=== PATIENT | male | born 1955 | race Caucasian/White ===

== ENCOUNTER 2016-12-15 11:14 | Day surgery (SDC) | payer BC ==
[2016-12-12 09:11] VITALS: BMI 32.3
[~2016-12-15 11:14] MED LIST: LACTATED RINGERS 1,000 ML IV SCH
[2016-12-15 11:54] VITALS: TEMP 98.1
[2016-12-15] MEDS ORDERED: LIDOCAINE 1% 20 ML VIAL (10MG/ML) FOR IV START INTRADERMA ONE (12:01)
[2016-12-15] MEDS ORDERED: PROPOFOL 10 MG/ML 20 ML VIAL IV ONE (12:34)
--- NOTE | 2016-12-15 13:13 | P.PCN ---
Date of Procedure: 12/15/16 Preoperative Diagnosis: Postoperative Diagnosis: Procedure(s) Performed: Procedure: Esophagogastroduodenoscopy with esophageal dilation and esophageal biopsy. Preoperative diagnosis: Dysphagia and history of esophageal stricture. Postoperative diagnosis: 1. Esophageal stricture dilated up to 15 mm using the Microvasive [id number]-[id number] balloon dilator. 2. Small hiatal hernia. Preparation and sedation: Was provided by anesthesia. Brief clinical history: The patient is a 61-year-old male who has had issues with solid food dysphagia including episodes of obstructive dysphagia over the last few years. Two different times he had to go to the hospital for endoscopic intervention. I performed an upper endoscopy and obtained biopsies around 2 years ago and at that time he was dilated up to 13.5 mm. The biopsies showed 80 eosinophils per high power field. The patient has noted recurrence of his symptoms already last 2 months with episodes of curling more frequently. He was thus referred for upper endoscopy and possible dilation. Procedure: With the patient on his left lateral decubitus position and after informed consent and adequate sedation, I passed the Olympus-GIF 160 video upper endoscope through the cricopharyngeus down the esophagus. GE junction was around 40-41 cm from the incisors and there was a benign-appearing stricture at that level that did not allow the advancement of the endoscope. There was another short benign stricture in the more proximal aspect of the esophagus around 25-26 cm from the incisors that I rule out the advancement of the endoscope. At this point, I proceeded to dilate the stricture before I was able to pass the endoscope into the stomach. I used the Microvasive through-the -scope balloon dilator size 12-15 mm and I centered it at the level of the stricture inflated it and a stepwise fashion up to 15 mm. After that I was able to pass the endoscope through a hiatal hernia to the rest of the stomach which was insufflated with air and inspected in detail including the retroflex view in the cardia. Finally the endoscope was passed through the pylorus into the duodenum. No obvious abnormalities were seen in the stomach. Pyloric channel, duodenal bulb, post bulbar area and descending duodenum appeared within normal limits. There was some corrugations noted in the esophagus but no obvious ulcers or erosions. I did obtain biopsies from the esophagus at the conclusion of the exam. Disposition: The patient tolerated the procedure well. Plan: The patient was reassured. Will keep on clear liquid diet today. He will follow up with you as planned. Further dilation can be planned based on his course. I will discuss with him options of treatment for eosinophilic esophagitis based on his course. I will keep you updated on his progress. Implants: Indications for Procedure: Operative Findings: Description of Procedure:
[2016-12-15 13:28] VITALS: BP 121/81; PULSE 75; RESP 18
== END 2016-12-15 14:00 | disposition home or self-care (01) ==
LOC: ORWHC2ENDO 11:14
DX: K22.2 Esophageal obstruction (principal); K20.0 Eosinophilic esophagitis; K44.9 Diaphragmatic hernia without obstruction or gangrene; Z88.0 Allergy status to penicillin; Z88.2 Allergy status to sulfonamides; I10 Essential (primary) hypertension; Z79.82 Long term (current) use of aspirin; Z79.899 Other long term (current) drug therapy
CPT/HCPCS: 88305; 43239; 43249; J2704

== ENCOUNTER 2020-03-19 06:02 | Day surgery (SDC) | payer BC ==
[2020-03-16 09:12] VITALS: BMI 32.1
[~2020-03-19 06:02] MED LIST changes: +ACETAMINOPHEN TAB 500 MG TAB PO PRN; +DEXAMETHASONE SOD PHOSPHATE 4 MG/ML 1 ML VIAL IV ONE; +HEPARIN SODIUM,PORCINE 5,000 UNIT/ML 1 ML VIAL SQ PRN; +LIDOCAINE 1% (10MG/ML) FOR IV START INTRADERMA PRN; +ONDANSETRON 4 MG/2 ML VIAL IVP ONE; +SCOPOLAMINE 1.5MG/72HR PATCH TRANSDERM ONE
[2020-03-19 06:49] VITALS: RESP 16
[2020-03-19 07:11] LABS: Basophils # (A) 0.1 k/uL (0-0.2); Basophils % (A) 1 %; Eosinophils # (A) 0.5 k/uL (0-0.7); Eosinophils % (A) 6 %; HCT 47.2 % (39.0-53.0); HGB 16.3 gm/dL (13.0-17.5); Lymphocytes # (A) 1.2 k/uL (1.0-4.8); Lymphocytes % (A) 14 %; MCH 29.8 pg (25.0-35.0); MCHC 34.6 g/dL (31.0-37.0); Mean Platelet Volume 6.6; Monocytes # (A) 0.4 k/uL (0-1.0); Monocytes % (A) 4 %; Neutrophils # (A) 6.1 k/uL (1.3-7.7); Neutrophils % (A) 72 %; Platelet Count 295 k/uL (150-450); RBC 5.48 m/uL (4.30-5.90); WBC 8.6 k/uL (3.8-10.6)
[2020-03-19 07:24] LABS: Calcium 9.5 mg/dL (8.4-10.2); Potassium 3.4 mmol/L (3.5-5.1)
[2020-03-19] MEDS ORDERED: BUPIVACAINE (PF) 0.25% 30 ML VIAL SQ ONE ×3 (07:42→08:07)
[2020-03-19] MEDS ORDERED: ROCURONIUM 10 MG/ML (10 ML VIAL) IV ONE (07:49)
[2020-03-19] MEDS ORDERED: SUCCINYLCHOLINE CHLORIDE 100 MG/5 ML SYR IV ONE (07:49)
[2020-03-19] MEDS ORDERED: GLYCOPYRROLATE 0.2 MG/ML 2 ML VIAL ONE (07:49)
[2020-03-19] MEDS ORDERED: LIDOCAINE 1% INJ 10MG/ML (20 ML MDV) ONE (07:49)
[2020-03-19] MEDS ORDERED: MIDAZOLAM 2 MG/2 ML VIAL ONE (07:49)
[2020-03-19] MEDS ORDERED: fentaNYL (PF) 50 MCG/ML 2 ML AMP ONE (07:49)
[2020-03-19] MEDS ORDERED: PROPOFOL 10 MG/ML 20 ML VIAL IV ONE (07:49)
[2020-03-19] MEDS ORDERED: NEOSTIGMINE 1 MG/ML 10 ML VIAL ONE (07:49)
--- NOTE | 2020-03-19 07:52 | P.HPADDEND ---
H&P Addendum H&P Addendum Date: 03/19/20 Only change to the recently dictated history and physical was that the patient presents today with a rash that began 2 days ago. He says he had something similar to this earlier this year and was treated with steroids orally and was told that it was likely related to contact dermatitis after working outside. The rashes involving his legs and lower torso. Arms and back upper abdomen and chest are spared. Rashes nonraised small reddish spots measuring 2-6 mm in size. Today CBC completely normal. Has had some vague nausea recently. Otherwise asymptomatic. No recent upper respiratory symptoms. Patient would like to proceed with surgery since he has made a lot of plans and changes to his schedule to accommodate this procedure. Also discussed that the patient has already had some risk of cold exposure just by coming into the hospital and being in preop with his IV in place. I told the patient I would be agreeable to proceed with surgery if he can get in to see his primary care physician in the next 24-48 hours to discuss further. Etiology most likely viral however other abnormalities including vasculitis may need to be evaluated. Slight increased risk of bleeding with the procedure reviewed. He is agreeable to proceed. Again the patient's hernia is ventral and present midway between the umbilicus and xiphoid. Patient also has a diastases recti as well as a probable small umbilical hernia in addition to his known inguinal hernias. Patient is agreeable to proceeding only with repair of the ventral hernia at this time which is the only area that is symptomatic to him presently. We'll proceed.
[2020-03-19 09:02] VITALS: TEMP 97.4
--- NOTE | 2020-03-19 09:05 | P.OP ---
Date of Procedure: 03/19/20 Procedure(s) Performed: PREOPERATIVE DIAGNOSIS: Incarcerated ventral hernia POSTOPERATIVE DIAGNOSIS: Same PROCEDURE: Incarcerated the ventral hernia repair with mesh SURGEON: Kane EBL: Minimal ANESTHESIA: Gen. COMPLICATIONS: None OPERATIVE PROCEDURE: Patient placed on the operating table in the supine posi tion. Abdomen was prepped and draped in usual sterile fashion. A vertical incision was then made superior to the umbilicus by approximately 8 cm. Dissection through the subcutaneous tissues took place using electrocautery. The patient's defect was singular. This measured 2-2.5 cm in diameter. The hernia contents were reduced back into the preperitoneal space. The preperitoneal space was then dissected using blunt dissection and electrocautery. The 6.4 cm ventral ex mesh was placed in the preperitoneal space and sutured to the fascia using trans-fascial 0 Ethibond sutures. Following that the fascia was reapproximated horizontally using interrupted 0 Ethibond mattress sutures. The folding edge was also sutured down using 0 Ethibond sutures. The subcutaneous tissues were closed using 2-0 and 3-0 Vicryl sutures. The skin was closed using a running 4-0 Monocryl suture. Skin glue and sterile dressings were applied. DISPOSITION: Stable to recovery room
[2020-03-19] MEDS: HYDROmorphone 0.5 MG/0.5 ML SYRINGE IVP PRN ×4 (09:25→09:50)
[2020-03-19] MEDS ORDERED: KETOROLAC 15 MG/ML 1 ML VIAL IVP ONE (09:28)
[2020-03-19] MEDS ORDERED: LACTATED RINGERS 1,000 ML IV ONE (09:30)
[2020-03-19 11:19] VITALS: BP 130/80; PULSE 100
[2020-03-19] MEDS ORDERED: IBUPROFEN 600 MG TAB PO SCH (12:00)
[2020-03-19] MEDS ORDERED: ACETAMINOPHEN TAB 325 MG TAB PO SCH (12:00)
== END 2020-03-19 11:55 | disposition home or self-care (01) ==
LOC: OR 06:02
PROVIDERS: ATTEND Surgery
DX: K43.6 Other and unspecified ventral hernia with obstruction, without gangrene (principal); I10 Essential (primary) hypertension; K21.9 Gastro-esophageal reflux disease without esophagitis; E78.5 Hyperlipidemia, unspecified; M19.90 Unspecified osteoarthritis, unspecified site; Z79.52 Long term (current) use of systemic steroids; Z79.899 Other long term (current) drug therapy; Z88.0 Allergy status to penicillin; Z88.2 Allergy status to sulfonamides
CPT/HCPCS: 80048; 85025; 49561; 49568; C1781; J2250; J1644; J1100; J2710; J0690; J2405; J2001; J3010; J1885; J0330; J2704; J1170

== ENCOUNTER → 2020-03-22 | Outpatient (CLI) | payer BC ==
[2020-03-22 08:27] LABS: Basophils # (A) 0.1 k/uL (0-0.2); Basophils % (A) 1 %; Eosinophils # (A) 0.8 k/uL (0-0.7); Eosinophils % (A) 9 %; HCT 47.7 % (39.0-53.0); HGB 15.8 gm/dL (13.0-17.5); Lymphocytes # (A) 1.5 k/uL (1.0-4.8); Lymphocytes % (A) 19 %; MCH 29.3 pg (25.0-35.0); MCHC 33.2 g/dL (31.0-37.0); MCV 88.3 fL (80.0-100.0); Mean Platelet Volume 6.6; Monocytes # (A) 0.4 k/uL (0-1.0); Monocytes % (A) 5 %; Neutrophils # (A) 5.2 k/uL (1.3-7.7); Neutrophils % (A) 63 %; Platelet Count 368 k/uL (150-450); RDW 13.2 % (11.5-15.5); WBC 8.3 k/uL (3.8-10.6)
[2020-03-22 08:38] LABS: Amorphous Sediment,Urine Few /hpf; Appearance,Urine Cloudy (Clear); Bilirubin,Urine Negative (Negative); Blood,Urine Negative (Negative); Color,Urine Yellow; Glucose,Urine (UA) Negative (Negative); Hyaline Casts,Urine 4 /lpf (0-2); Ketones,Urine Negative (Negative); Leukocyte Esterase,Urine Negative (Negative); Mucus,Urine Occasional /hpf; Nitrite,Urine Negative (Negative); PH, Urine 7.5 (5.0-8.0); Protein,Urine 1+ (Negative); RBC,Urine 2 /hpf (0-5); Specific Gravity,Urine 1.014 (1.001-1.035); Squamous Epithelial Cell,Urine <1 /hpf (0-4); Urobilinogen,Urine <2.0 mg/dL (<2.0); WBC,Urine 3 /hpf (0-5)
[2020-03-22 10:56] LABS: Creatinine,Urine Random 199.8 mg/dL; Protein/Creatinine Ratio,Urine 0.17
[2020-03-22 11:22] LABS: Erythrocyte Sedimentation Rate 36 mm/hr (0-15)
[2020-03-22 11:47] LABS: African American GFR (CKD) 67.3 (60.0-200.0); Albumin 4.4 g/dL (3.80-4.90); Albumin/Globulin Ratio 1.83 (1.60-3.17); Anion Gap 7.9 mmol/L (4.00-12.00); BUN/Creat Ratio 11.54 Ratio (12.00-20.00); Calcium 9.5 mg/dL (8.7-10.3); Carbon Dioxide 35.1 mmol/L (21.6-31.8); Chol/HDL Ratio 5.37; Globulin 2.4 g/dL (1.6-3.3); LDL Cholesterol,Calculated 130.2 mg/dL (0.0-131.0); Magnesium 2.6 mg/dL (1.5-2.4); Non-African American GFR(CKD) 58.1 (60.0-200.0); Potassium 3.8 mmol/L (3.5-5.5); Total Bilirubin 0.7 mg/dL (0.3-1.2); Total Protein 6.8 g/dL (6.2-8.2); VLDL Calculation 35.8 mg/dL (5.00-40.00)
[2020-03-22 11:52] LABS: T4, Free (Free Thyroxine) 1.4 ng/dL (0.80-1.80)
[2020-03-22 16:12] LABS: Cyclic Citrull Pep IgG Unit 1.2 U/mL; Cyclic Citrullinated Pep IgG NEGATIVE (NEGATIVE)
[2020-03-23 14:22] LABS: C-ANCA <1:20 Titer (<1:20)
== END | disposition home or self-care (01) ==
LOC: LABWHC1 07:07
PROVIDERS: ATTEND Internal Medicine
DX: R97.20 Elevated prostate specific antigen [PSA] (principal); I10 Essential (primary) hypertension; M31.0 Hypersensitivity angiitis; Q61.2 Polycystic kidney, adult type; E78.2 Mixed hyperlipidemia
CPT/HCPCS: 36415; 80053; 80061; 81001; 82570; 82595; 83735; 83970; 84100; 84153; 84156; 84439; 84443; 85025; 85652; 86038; 86200; 86255; 86431

== ENCOUNTER → 2020-04-16 | Outpatient (CLI) | payer BC ==
[2020-04-17 09:41] LABS: Free Kappa Lt Chain Qnt, Serum 2.73 mg/dL (0.33-1.94); Immunoglobulin M 60.7 mg/dL (40.0-280.0)
== END | disposition home or self-care (01) ==
LOC: LABWHC1 10:22
PROVIDERS: ATTEND Internal Medicine
DX: M31.0 Hypersensitivity angiitis (principal)
CPT/HCPCS: 36415; 82784; 82785; 83883; 86060; 86160; 86162

== ENCOUNTER 2023-07-21 06:58 | Day surgery (SDC) | payer BC, MEDICARE ==
[2023-07-16 16:22] VITALS: BMI 33.0
[~2023-07-21 06:58] MED LIST changes: -ACETAMINOPHEN TAB 500 MG TAB PO PRN; -DEXAMETHASONE SOD PHOSPHATE 4 MG/ML 1 ML VIAL IV ONE; -HEPARIN SODIUM,PORCINE 5,000 UNIT/ML 1 ML VIAL SQ PRN; -LACTATED RINGERS 1,000 ML IV SCH; -ONDANSETRON 4 MG/2 ML VIAL IVP ONE; -SCOPOLAMINE 1.5MG/72HR PATCH TRANSDERM ONE
[2023-07-21] MEDS: LACTATED RINGERS 1,000 ML IV SCH (07:15)
[2023-07-21 07:59] VITALS: RESP 16; TEMP 97.5
[2023-07-21] MEDS ORDERED: LIDOCAINE 1% INJ 10MG/ML (20 ML MDV) ONE (08:20)
[2023-07-21] MEDS ORDERED: PROPOFOL 10 MG/ML 20 ML VIAL IV ONE (08:20)
--- NOTE | 2023-07-21 09:13 | P.GSHP ---
History of Present Illness H&P Date: 07/21/23 Chief Complaint: Dysphagia, screening, history of polyps 67-year-old male here today for upper and lower endoscopy. Patient with intermittent dysphagia for the last 10 years. Symptoms lately have not been too bad. He does take Tums periodically. Does not take any prescription antiacids. Last colonoscopy 7 to 10 years ago. Had polyps then. No family history of colon cancer. Past Medical History Past Medical History: Hyperlipidemia, Hypertension, Renal Disease Additional Past Medical History / Comment(s): "mild" polycystic kidney disease- no current problems History of Any Multi-Drug Resistant Organisms: None Reported Past Surgical History: Hernia Repair, Tonsillectomy Additional Past Surgical History / Comment(s): COLONOSCOPY, EGD with dilation x 2 Past Anesthesia/Blood Transfusion Reactions: No Reported Reaction Past Psychological History: No Psychological Hx Reported Smoking Status: Former smoker Past Alcohol Use History: None Reported Additional Past Alcohol Use History / Comment(s): quit smoking 35 yrs ago, smoked for a couple yrs Past Drug Use History: None Reported - Past Family History Mother Family Medical History: No Reported History Medications and Allergies Home Medications Medication Instructions Recorded Confirmed Type Multivitamin [Men's Multi-Vitamin] 1 each PO DAILY 09/16/13 07/21/23 History Aspirin [Adult Low Dose Aspirin EC] 81 mg PO DAILY 03/16/20 07/21/23 History amLODIPine [Norvasc] 10 mg PO DAILY 03/16/20 07/21/23 History Chlorthalidone 25 mg PO HS 07/16/23 07/21/23 History Losartan Potassium 100 mg PO DAILY 07/16/23 07/21/23 History Metoprolol Succinate (ER) [Toprol 50 mg PO HS 07/16/23 07/21/23 History Xl] Rosuvastatin [Crestor] 20 mg PO DAILY 07/16/23 07/21/23 History Allergies Allergy/AdvReac Type Severity Reaction Status Date / Time Penicillins Allergy Unknown Verified 07/21/23 07:23 Childhood Sulfa (Sulfonamide Allergy Unknown Verified 07/21/23 07:23 Antibiotics) Childhood Surgical - Exam Vital Signs Temp Pulse Resp BP Pulse Ox 97.5 F L 70 16 154/83 94 L 07/21/23 07:24 07/21/23 07:24 07/21/23 07:24 07/21/23 07:24 07/21/23 07:24 Physical exam: General: Well-developed, well-nourished HEENT: Normocephalic, sclerae nonicteric Abdomen: Nontender, nondistended Extremities: No edema Neuro: Alert and oriented Assessment and Plan (1) Colon cancer screening Narrative/Plan: Will proceed with upper endoscopy and colonoscopy at this time Current Visit: Yes Status: Acute Code(s): Z12.11 - ENCOUNTER FOR SCREENING FOR MALIGNANT NEOPLASM OF COLON SNOMED Code(s): 280042686
--- NOTE | 2023-07-21 09:15 | P.PCN ---
Date of Procedure: 07/21/23 Procedure(s) Performed: PREOPERATIVE DIAGNOSIS: Dysphagia, screening, history of polyps POSTOPERATIVE DIAGNOSIS: Gastritis, hiatal hernia, distal esophageal stricture, diverticulosis, descending colon polyp PROCEDURE: 1. EGD with biopsy and dilation 2. Colonoscopy with snare polypectomy ANESTHESIA: [facility] [place] SURGEON: Darren Middleton M.D. SPECIMENS: Antrum, polyp ENDOSCOPIC PROCEDURE: The patient was on the endoscopy table in the left decubitus position. The Olympus gastroscope was inserted into the oropharynx and passed under direct visualization to the region of the third portion of the duodenum. From that point the scope was slowly withdrawn inspecting all surfaces carefully. There were no neoplastic inflammatory or polypoid lesions throughout the duodenum. The pylorus was widely patent. The stomach was carefully inspected. There was mild gastritis present. A biopsy of the antrum took place to rule out H. pylori. Retroflexion revealed a small to medium size hiatal hernia. The GE junction was present 2 cm above the diaphragmatic hiatus. At the GE junction there was a stricture present. This was approximately 10 mm in diameter. There was no inflammatory changes there. No ulcerations or neoplastic changes. Dilation took place sequentially from 12-13 0.5 to 15 mm. Pressure was held for 1 minute at each level. Minimal bleeding was seen. No significant mucosal tearing was noted. The remainder the esophagus appeared normal. The patient was kept on the endoscopy table in the left decubitus position. The Olympus colonoscope was inserted into the anus and passed under direct visualization to the base of the cecum. The appendiceal orifice was visualized. From that point the scope was slowly withdrawn inspecting all surfaces carefully. There were no neoplastic inflammatory or polypoid lesions throughout the cecum, ascending, and transverse colon. The descending colon a small polyp was seen and removed using the snare with cautery technique. The remainder of the descending sigmoid and rectum was normal. The patient had mild left-sided diverticulosis. The patient's prep was slightly suboptimal. Digital rectal examination was normal. The patient was taken to the recovery room in stable condition per anesthesia guidelines. RECOMMENDATIONS: Await biopsy results. Begin daily antiacid therapy. Plan repeat upper and lower endoscopy 5 years.
[2023-07-21 09:27] VITALS: BP 132/74; PULSE 64
== END 2023-07-21 09:32 | disposition home or self-care (01) ==
LOC: ORWHC2ENDO 06:58
PROVIDERS: ATTEND Surgery
DX: Z12.11 Encounter for screening for malignant neoplasm of colon (principal); D12.4 Benign neoplasm of descending colon; K29.50 Unspecified chronic gastritis without bleeding; K44.9 Diaphragmatic hernia without obstruction or gangrene; K22.2 Esophageal obstruction; K57.30 Diverticulosis of large intestine without perforation or abscess without bleeding; I10 Essential (primary) hypertension; E78.5 Hyperlipidemia, unspecified; Q61.3 Polycystic kidney, unspecified; Z87.891 Personal history of nicotine dependence; Z88.0 Allergy status to penicillin; Z88.2 Allergy status to sulfonamides; Z79.82 Long term (current) use of aspirin; Z79.899 Other long term (current) drug therapy
CPT/HCPCS: 88305; 45385; 43239; 43249; J2001; J2704; C1726

== ENCOUNTER → 2024-09-09 | Outpatient (CLI) | payer MEDICARE ==
--- NOTE | 2024-09-09 08:25 | US ---
EXAMINATION TYPE: US carotid duplex BILAT DATE OF EXAM: 09/09/2024 COMPARISON: NONE CLINICAL INDICATION: Male, 69 years old with history of I65.23 STENOSIS OF BILATERAL CAROTID ARTERIES ; Hx Social smoker and HTN, Pre diabetic. Patient denies any other signs, symptoms, or relevant histo ry Additional History: .... TECHNIQUE: Grayscale, color Doppler and spectral Doppler evaluation of the bilateral carotid systems and vertebral arteries. Indirect Doppler criteria was utilized. FINDINGS: EXAM MEASUREMENTS: RIGHT: Peak Systolic Velocity (PSV) cm/sec ----- Right CCA: 86 ----- Right ICA: 60 ----- Right ECA: 87 ICA/CCA ratio: 0.7 RIGHT: End Diastole cm/sec ----- Right CCA: 20 ----- Right ICA: 27 ----- Right ECA: 14 LEFT: Peak Systolic Velocity (PSV) cm/sec ----- Left CCA: 66 ----- Left ICA: 44 ----- Left ECA: 65 ICA/CCA ratio: 0.7 LEFT: End Diastole cm/sec ----- Left CCA: 17 ----- Left ICA: 22 ----- Left ECA: 14 VERTEBRALS (direction of flow): Right Vertebral: Antegrade Left Vertebral: Antegrade Rhythm: Arrhythmia; IMG 40 NUCLEAR TECHNICIAN NOTES: No intimal thickening, plaque, or elevated velocities seen. Color Doppler imaging shows patency with blood flow throughout the carotid artery. Spectral waveforms are within normal limits. IMPRESSION: 1. Atheromatous plaquing without significant flow-limiting stenosis. Criteria for Assigning % of Stenosis / Diameter reduction (Estimation based on the indirect measurements of the internal carotid artery velocities (ICA PSV). 1. Normal (no stenosis)=ICA PSV < 180 cm/s: ratio < 2.0: ICA EDV<40 cm/s. 2. Less than 50% stenosis=ICA PSV < 180 cm/s: ratio < 2.0: ICA EDV<40 cm/s. 3. 50 to 69% stenosis=ICA PSV of 180 to 230 cm/s: ration 2.0 ? 4.0: ICA EDV 40-100 cm/s. PSV 125-180 cm/sec and ICA/CCA PSV Ratio ? 2.0 is also consistent with 50-69% stenosis 4. Greater than 70% stenosis to near occlusion= ICA PSV > 230 cm/s: ratio > 4.0: ICA EDV > 100 cm/s. 5. Near occlusion= ICA PSV velocities may be low or undetectable: variable ratio and ICA EDV. 6. Total occlusion=unable to detect flow. [facility], , 09/09/2024 8:23 AM
== END | disposition home or self-care (01) ==
LOC: RADUSWWP 07:16
PROVIDERS: ATTEND Internal Medicine
DX: I65.23 Occlusion and stenosis of bilateral carotid arteries (principal); I10 Essential (primary) hypertension; R73.03 Prediabetes; Z87.891 Personal history of nicotine dependence
CPT/HCPCS: 93880

== ENCOUNTER → 2024-09-09 | Outpatient (CLI) | payer MEDICARE ==
--- NOTE | 2024-09-09 09:25 | CA ---
Transthoracic Echo Report Name: Antonino Bradford Age: 69 Gender: M : 1955 Exam Date: 09/09/2024 07:55 Exam Location: [facility] Ht (in): 70 Wt (lb): 235 Ordering Physician: Eric Ash MD Attending/Referring Phys: Configuration Release Manager Bel Medeiros RDCS Procedure CPT: Indications: I25.10 CORONARY ARTERY DISEASE Cardiac Hx: Technical Quality: Good Contrast 1: Total Dose (mL): Contrast 2: Total Dose (mL): MEASUREMENTS (Male / Female) Normal Values 2D ECHO LV Diastolic Diameter PLAX 5.0 cm 4.2 - 5.9 / 3.9 - 5.3 cm LV Systolic Diameter PLAX 3.1 cm IVS Diastolic Thickness 1.2 cm 0.6 - 1.0 / 0.6 - 0.9 cm LVPW Diastolic Thickness 0.9 cm 0.6 - 1.0 / 0.6 - 0.9 cm LV Relative Wall Thickness 0.4 LVOT Diameter 2.2 cm LV Diastolic Volume MOD BP 137.1 cm??? 67 - 155 / 56 - 104 cm??? LV Systolic Volume MOD BP 43.8 cm??? 22 - 58 / 19 - 49 cm??? LV Ejection Fraction MOD BP 68.0 % >= 55 % LV Cardiac Index MOD BP 2562.7 cm???/min???m??? LV Diastolic Volume MOD 4C 137.2 cm??? LV Systolic Volume MOD 4C 44.3 cm??? LV Ejection Fraction MOD 4C 67.7 % LV Cardiac Index MOD 4C 2549.8 cm???/min???m??? LV Diastolic Length 4C 8.4 cm LV Systolic Length 4C 7.1 cm LV Diastolic Volume MOD 2C 127.3 cm??? LV Systolic Volume MOD 2C 41.2 cm??? LV Ejection Fraction MOD 2C 67.7 % LV Cardiac Index MOD 2C 2366.4 cm???/min???m??? LV Diastolic Length 2C 9.1 cm LV Systolic Length 2C 7.5 cm LA Volume 48.8 cm??? 18 - 58 / 22 - 52 cm??? LA Volume Index 20.9 cm???/m??? 16 - 28 cm???/m??? Ascending Aorta Diameter 3.9 cm DOPPLER AV Peak Velocity 120.5 cm/s AV Peak Gradient 5.8 mmHg AV Mean Velocity 79.2 cm/s AV Mean Gradient 2.8 mmHg AV Velocity Time Integral 21.4 cm LVOT Peak Velocity 104.2 cm/s LVOT Peak Gradient 4.3 mmHg LVOT Velocity Time Integral 22.4 cm LVOT Stroke Volume 86.4 cm??? LVOT Stroke Volume Index 38.6 ml/m??? LVOT Cardiac Index 2372.2 cm???/min???m??? AV Area Cont Eq vti 4.0 cm??? AV Area Cont Eq pk 3.3 cm??? MV Area PHT 2.5 cm??? Mitral E Point Velocity 61.2 cm/s Mitral A Point Velocity 80.3 cm/s Mitral E to A Ratio 0.8 MV Deceleration Time 301.5 ms TR Peak Velocity 226.3 cm/s TR Peak Gradient 20.5 mmHg Right Atrial Pressure 5.0 mmHg Pulmonary Artery Systolic Pressu 25.5 mmHg Right Ventricular Systolic Press 25.5 mmHg PV Peak Velocity 109.4 cm/s PV Peak Gradient 4.8 mmHg FINDINGS Left Ventricle Left ventricular ejection fraction is estimated at 55-60%. Mildly increased septal wall thickness. Normal left ventricular systolic function with no obvious regional wall motion abnormalities. Right Ventricle Normal right ventricular size and function. Right ventricular systolic pressure within normal limits. Right Atrium Normal right atrial size. Left Atrium Normal left atrial size. Mitral Valve Structurally normal mitral valve. No mitral stenosis. Trace mitral regurgitation. Aortic Valve Trileaflet aortic valve. No aortic stenosis. No aortic regurgitation. Tricuspid Valve Structurally normal tricuspid valve. No tricuspid stenosis. Trace to mild tricuspid regurgitation. Pulmonic Valve Structurally normal pulmonic valve. No pulmonic stenosis. Mild pulmonic regurgitation. Pericardium No pericardial effusion. No pleural effusion. Aorta Normal size aortic root and proximal ascending aorta. Mildly dilated aortic annulus. CONCLUSIONS LVEF 55% No obvious regional wall motion abnormality Mildly increased septal wall thickness Normal RV size and systolic function RVSP estimated around 25 mmHg No obvious valvular dysfunction Previewed by: Dr Johnny Lozano (Electronically Signed) Final Date: 09 September 2024 09:24
--- NOTE | 2024-09-09 13:50 | MR ---
EXAMINATION TYPE: MR Prostate wo/w con DATE OF EXAM: 09/09/2024 COMPARISON: None. INDICATION: Elevated PSA. PSA: 5.8 ng/ml on July 14, 2024 Recent Biopsy and Date: None Pathology Report (If Applicable): TECHNIQUE: Examination was performed using a 3T MRI without an endorectal coil. Multiparametric imaging was perf ormed with T2 mutliplanar sequences, axial diffusion weighted imaging and dynamic contrast enhanced i maging, utilizing 10 mL intravenous Gadobutrol gadolinium contrast. FINDINGS: PROSTATE VOLUME: 6.1 cm SI x 4.1 cm AP x 6.2 cm LR Vol= 81.2 cc PSA DENSITY: 0.07 ng/ml/cc Enlarged prostate consistent with BPH is present. Peripheral zone shows some wedge-shaped areas of sl ightly diminished signal on ADC mapping bilaterally. There is transitional zone hypertrophy with mult iple bilateral nodules. No suspicious T2 hypointense areas. No areas of suspicious increased signal o n diffusion-weighted imaging. No destructive osseous lesions. IMPRESSION: Enlarged prostate consistent with BPH. A focus of clinically significant cancer is not identified. Highest Assessment Category: 2 MRI Stage: T0 N0 M0 based on review of pelvic images. False negative rates for MRI range from 5-20% depending on risk profile. Assessment Categories: 1 ? Very low (clinically significant cancer is highly unlikely to be present) 2 ? Low (clinically significant cancer is unlikely to be present) 3 ? Intermediate (the presence of clinically significant cancer is equivocal) 4 ? High (clinically significant cancer is likely to be present) 5 ? Very high (clinically significant cancer is highly likely to be present) [facility], , 09/09/2024 1:48 PM
== END | disposition home or self-care (01) ==
LOC: RADMRIMAIN 07:47
PROVIDERS: ATTEND Internal Medicine
DX: R97.20 Elevated prostate specific antigen [PSA] (principal)
CPT/HCPCS: 93306; 72197; A9585